=== PATIENT | female | born 2000 | race Caucasian/White ===

== ENCOUNTER 2024-08-29 12:19 | Inpatient (IN) | payer BC, MEDICAID ==
[2024-08-29] MEDS ORDERED: Phenylephrine HCl In 0.9% NaCl 1 MG/10 ML Syringe IVPUSH PRN (13:18)
[2024-08-29] MEDS ORDERED: ePHEDrine 50 MG/ML SDV IVPUSH PRN (13:18)
[2024-08-29] MEDS ORDERED: dexmedeTOMIDine HCl 200 MCG/2 ML SDV EPIDUR SCH (13:30)
[2024-08-29] MEDS ORDERED: Misoprostol 200 MCG Tab PO PRN (16:48)
[2024-08-29] MEDS ORDERED: Lidocaine 1% 50 ML MDV INJECT PRN (16:48)
[2024-08-29] MEDS ORDERED: Acetaminophen 325 MG Tab PO PRN (16:48)
[2024-08-29] MEDS ORDERED: Water For Irrigation,Sterile 1,000 ML Container IRR PRN (16:48)
[2024-08-29] MEDS ORDERED: Sodium Chloride 0.9% 20 ML SDV IV PRN (16:48)
[2024-08-29] MEDS ORDERED: Sodium Chloride 0.9% 2.5 ML Syringe FLUSH PRN (16:48)
[2024-08-29] MEDS ORDERED: Terbutaline 1 MG/ML SDV SUBCUT PRN (16:48)
[2024-08-29] MEDS ORDERED: Methylergonovine 0.2 MG/1 ML Amp IM PRN (16:48)
[2024-08-29] MEDS ORDERED: Nalbuphine 10 MG/1 ML Vial IVPUSH PRN (16:48)
[2024-08-29] MEDS ORDERED: Sodium Chloride 0.9% 10 ML Syringe FLUSH PRN (16:48)
[2024-08-29] MEDS ORDERED: Carboprost Tromethamine 250 MCG/1 mL Vial IM PRN (16:48)
[2024-08-29] MEDS ORDERED: Oxytocin/0.9 % Sodium Chloride 30 UNIT/500 ML BAG IV SCH (17:00)
[2024-08-29 18:55] LABS: HEMATOCRIT 33.9 % (37.0-47.0); HEMOGLOBIN 11.3 g/dL (12.0-16.0); MEAN CORPUSCULAR HEMOGLOBIN 30.1 pg (28.0-32.0); MEAN CORPUSCULAR HGB CONC 33.3 g/dL (32.0-36.0); MEAN CORPUSCULAR VOLUME 90.4 fL (83.0-99.0); MEAN PLATELET VOLUME 8.5 fL (9.4-12.3); PLATELET COUNT,PLT 344 K/uL (150-400); RED BLOOD CELL COUNT 3.75 M/uL (4.10-5.30); WHITE BLOOD CELL COUNT,WBC 13.95 K/uL (3.9-11.3)
[2024-08-29] MEDS: Oxytocin/0.9 % Sodium Chloride 30 UNIT/500 ML BAG IV SCH (20:30)
[2024-08-29] MEDS: Lactated Ringers 1,000 ML IV SCH (20:30)
[2024-08-29] MEDS: Butorphanol 2 MG/ML SDV IVPUSH PRN (21:15)
[2024-08-29] MEDS: Ondansetron 4 MG/2 ML SDV IVPUSH PRN (21:25)
[2024-08-29] MEDS: Ropivacaine HCl/PF 400 MG in Premix Bag 1 BAG EPIDUR SCH (22:51)
[2024-08-30] MEDS ORDERED: Simethicone 80 MG Tab.Chew PO PRN (03:27)
[2024-08-30] MEDS: Witch Hazel Medicated Pads 40/Jar TOP PRN (06:03)
[2024-08-30] MEDS: Benzocaine/Menthol 20%-0.5% Spray 78 GM Cannister TOP PRN (06:03)
[2024-08-30] MEDS ORDERED: Ferrous Sulfate 325 MG Tab PO SCH (07:00)
[2024-08-30] MEDS ORDERED: Prenatal Multivitamin with Calcium/Folic Acid/Iron Tab PO SCH (09:00)
[2024-08-30] MEDS: Ibuprofen 800 MG Tab PO PRN (11:32)
[2024-08-30] MEDS: Acetaminophen 500 MG Tab PO PRN (20:18)
[2024-08-30] MEDS: Docusate Sodium 100 MG Cap PO PRN (20:18)
[2024-08-31] MEDS ORDERED: Terbutaline 1 MG/ML SDV SUBCUT PRN (05:14)
[2024-08-31] MEDS ORDERED: Misoprostol 25 MCG (1/4 of 100 MCG) Tab VAG PRN ×2 (05:14)
[2024-08-31] MEDS ORDERED: Oxytocin/0.9 % Sodium Chloride 30 UNIT/500 ML BAG IV SCH (05:15)
[2024-08-31] MEDS ORDERED: Misoprostol 25 MCG (1/4 of 100 MCG) Tab PO ONE (05:16)
[2024-08-31 06:28] LABS: HEMATOCRIT 32.5 % (37.0-47.0); HEMOGLOBIN 10.8 g/dL (12.0-16.0)
== END 2024-08-31 13:20 | disposition home or self-care (01) | DRG 560 ==
LOC: MW.OB 12:19 → MW.OBCHECK 12:19 → MW.OB 08-30 00:58 → MW.OBCHECK 08-30 00:58 → OBSVTOIN 08-30 00:58 → MW.OB 08-30 05:39
PROVIDERS: ADMIT Obstetrics & Gynecology; ATTEND Obstetrics & Gynecology
PROC: 10E0XZZ Delivery of Products of Conception, External Approach (ICD-10-PCS; principal; 2024-08-30)
PROC: 0UQMXZZ Repair Vulva, External Approach (ICD-10-PCS; 2024-08-30)
PROC: 3E0R3BZ Introduction of Anesthetic Agent into Spinal Canal, Percutaneous Approach (ICD-10-PCS; 2024-08-30)
PROC: 00HU33Z Insertion of Infusion Device into Spinal Canal, Percutaneous Approach (ICD-10-PCS; 2024-08-30)
PROC: 10H07YZ Insertion of Other Device into Products of Conception, Via Natural or Artificial Opening (ICD-10-PCS; 2024-08-30)
DX: O48.0 Post-term pregnancy (principal); Z37.0 Single live birth; O42.02 Full-term premature rupture of membranes, onset of labor within 24 hours of rupture; O70.0 First degree perineal laceration during delivery; Z91.013 Allergy to seafood; Z88.8 Allergy status to other drugs, medicaments and biological substances; Z3A.40 40 weeks gestation of pregnancy
CPT/HCPCS: 01967; 36415; 51702; 59025; 59409; 84112; 85014; 85018; 85027; 86592; 86850; 86900; 86901; A9270-GY; J0595; J2405; J2590; J2795; J7120

== ENCOUNTER 2025-08-15 16:01 | Inpatient (IN) | payer BC, MEDICAID ==
[2025-08-15] MEDS ORDERED: Water For Irrigation,Sterile 1,000 ML Container IRR PRN (16:33)
[2025-08-15] MEDS ORDERED: Sodium Chloride 0.9% 2.5 ML Syringe FLUSH PRN (16:33)
[2025-08-15] MEDS ORDERED: Butorphanol 1 MG/ML SDV IVPUSH PRN (16:33)
[2025-08-15] MEDS ORDERED: Ondansetron 4 MG/2 ML SDV IVPUSH PRN (16:33)
[2025-08-15] MEDS ORDERED: Sodium Chloride 0.9% 10 ML Syringe FLUSH PRN (16:33)
[2025-08-15] MEDS ORDERED: Carboprost Tromethamine 250 MCG/1 mL Vial IM PRN (16:33)
[2025-08-15] MEDS ORDERED: Oxytocin/0.9 % Sodium Chloride 30 UNIT/500 ML BAG IV SCH (16:45)
[2025-08-15] MEDS: Lactated Ringers 1,000 ML IV SCH (16:50)
[2025-08-15 17:01] LABS: MEAN PLATELET VOLUME 8.6 fL (9.4-12.3); NRBC ABSOLUTE 0.00 K/uL (0.00-0.02); NRBC PERCENT 0.0 /100WBC (0.0-0.2); PLATELET COUNT,PLT 341 K/uL (150-400); RED BLOOD CELL COUNT 4.07 M/uL (4.10-5.30); WHITE BLOOD CELL COUNT,WBC 12.49 K/uL (3.9-11.3)
[2025-08-15] MEDS ORDERED: dexmedeTOMIDine HCl 200 MCG/2 ML SDV ONE (17:11)
[2025-08-15] MEDS: Ropivacaine HCl/PF 200 ML ONE (17:23)
[2025-08-15] MEDS ORDERED: ePHEDrine 50 MG/ML SDV IVPUSH PRN (17:32)
[2025-08-15] MEDS ORDERED: dexmedeTOMIDine HCl 200 MCG/2 ML SDV EPIDUR SCH (17:45)
[2025-08-15] MEDS ORDERED: Ropivacaine HCl/PF 400 MG in Premix Bag 1 BAG EPIDUR SCH (17:45)
[2025-08-15] MEDS ORDERED: Terbutaline 1 MG/ML SDV SUBCUT PRN (21:04)
[2025-08-15] MEDS: Oxytocin/0.9 % Sodium Chloride 30 UNIT/500 ML BAG IV SCH (22:55)
[2025-08-16] MEDS ORDERED: Lanolin 100% Cream 7 GM Tube TOP PRN (01:29)
[2025-08-16] MEDS ORDERED: Aluminum Hydroxide/Magnesium Hydroxide/Simethicone Susp 30 ML Cup PO PRN (01:29)
[2025-08-16 01:50] LABS: PH,UMBILICAL ARTERIAL 7.28 (7.18-7.38); PH,UMBILICAL VENOUS 7.33 (7.25-7.45)
[2025-08-16] MEDS: Benzocaine/Menthol 20%-0.5% Spray 78 GM Cannister TOP PRN (04:12)
[2025-08-16] MEDS: Witch Hazel Medicated Pads 40/Jar TOP PRN (04:13)
[2025-08-16 05:55] LABS: BASOPHILS ABSOLUTE AUTO 0.03 K/uL (0.00-0.20); BASOPHILS PERCENT AUTO 0.2 % (0.0-1.0); EOSINOPHILS ABSOLUTE AUTO 0.02 K/uL (0.00-0.45); EOSINOPHILS PERCENT AUTO 0.1 % (0.0-6.0); IMMATURE GRAN ABSOLUTE AUTO 0.13 K/uL (0.00-0.05); IMMATURE GRAN PERCENT AUTO 0.8 % (0.0-0.4); LYMPHOCYTES ABSOLUTE AUTO 2.99 K/uL (1.00-4.80); LYMPHOCYTES PERCENT AUTO 17.4 % (24.0-44.0); MEAN PLATELET VOLUME 8.7 fL (9.4-12.3); MONOCYTES ABSOLUTE AUTO 1.21 K/uL (0.00-0.80); MONOCYTES PERCENT AUTO 7.0 % (0.0-8.0); NEUTROPHILS ABSOLUTE AUTO 12.85 K/uL (1.80-7.70); NEUTROPHILS PERCENT AUTO 74.5 % (41.0-71.0); NRBC ABSOLUTE 0.00 K/uL (0.00-0.02); NRBC PERCENT 0.0 /100WBC (0.0-0.2); PLATELET COUNT,PLT 345 K/uL (150-400); RED BLOOD CELL COUNT 3.66 M/uL (4.10-5.30); WHITE BLOOD CELL COUNT,WBC 17.23 K/uL (3.9-11.3)
== END 2025-08-17 16:50 | disposition home or self-care (01) | DRG 807 ==
LOC: MW.OBCHECK 16:01 → MW.OB 16:01 → MW.OBCHECK 16:53 → MW.OB 16:53 → UNDOADMOB 16:55 → MW.OB 08-16 01:01 → OBSVTOIN 08-16 01:01 → INTOOBSV 08-16 01:01 → MW.OB 08-16 03:32 → UNDODISIN 08-17 16:50
PROVIDERS: ADMIT Obstetrics & Gynecology; ATTEND Obstetrics & Gynecology
PROC: 10E0XZZ Delivery of Products of Conception, External Approach (ICD-10-PCS; principal; 2025-08-16)
PROC: 3E0R3BZ Introduction of Anesthetic Agent into Spinal Canal, Percutaneous Approach (ICD-10-PCS; 2025-08-16)
DX: O48.0 Post-term pregnancy (principal); Z37.0 Single live birth; O99.214 Obesity complicating childbirth; O43.193 Other malformation of placenta, third trimester; O43.123 Velamentous insertion of umbilical cord, third trimester; O77.0 Labor and delivery complicated by meconium in amniotic fluid; E66.01 Morbid (severe) obesity due to excess calories; Z3A.40 40 weeks gestation of pregnancy; Z88.8 Allergy status to other drugs, medicaments and biological substances; Z79.899 Other long term (current) drug therapy
CPT/HCPCS: 01967; 36415; 51702; 59025; 59409; 82803; 85025; 85027; 86592; 86850; 86900; 86901; 96365; 96366; A9270-GY; G0378; J0665; J2371; J2590; J2795; J7120